=== PATIENT | female | born 1985 | race Caucasian/White ===

== ENCOUNTER 2019-09-19 09:27 | Outpatient (REF) | payer BC, SELFPAY ==
--- NOTE | 2019-09-19 08:45 | PAPFT_PTH ---
PATIENT: Franchesca Phelps LOC: [facility] U#:[id number] AGE/SX: 33/F ROOM: RE09/19/[address]: Gala Phillips NP : 1985 BED: DIS: 09/19/2019 SPEC #: [id number] RECD: 09/19/19 12:52 STATUS: PUMA REQ #: [id number] MIHAI: 09/19/19 08:[address]: Keily Aragon DEPT: [facility] Cytology RECD BY: Lien Chaidez ENTERED: 09/19/19 12:53 SP TYPE: PAPFT OTHR DR: Goldie Aden Tissues: 1 - CX/ENDOCX FOR PAP SMEARS Procedures: PAP THIN PREP/UVM Screening HPV DNA PROBE Comments: [id number]
== END 2019-09-19 09:47 ==
LOC: LBN 09:27
PROVIDERS: PCP Internal Medicine; Visit Provider Nurse Practitioner Women's Health
DX: Z12.4 Encounter for screening for malignant neoplasm of cervix (principal); Z11.51 Encounter for screening for human papillomavirus (HPV)
CPT/HCPCS: 88142; 87624

== ENCOUNTER 2020-10-31 11:38 | Outpatient (REF) | payer BC, SELFPAY ==
--- NOTE | 2020-10-31 11:00 | PAPFT_PTH ---
PATIENT: Franchesca Phelps LOC: [facility] U#:[id number] AGE/SX: 34/F ROOM: RE10/31/[address]: DANE Lopez : 1985 BED: DIS: 10/31/2020 SPEC #: [id number] RECD: 10/31/20 13:05 STATUS: PUMA REJackie #: [id number] MIHAI: 10/31/20 11:[address]: Goldie Gonzales DEPT: [facility] Cytology RECD BY: Lien Chaidez ENTERED: 10/31/20 13:06 SP TYPE: PAPFT OTHR DR: Goldie Aden Tissues: 1 - CX/ENDOCX FOR PAP SMEARS Procedures: PAP THIN PREP/UVM Screening HPV DNA PROBE Comments: [id number]
== END 2020-10-31 11:39 | disposition home or self-care (01) ==
LOC: LBN 11:38
PROVIDERS: PCP Internal Medicine; Visit Provider Nurse Practitioner Family
DX: Z12.4 Encounter for screening for malignant neoplasm of cervix (principal); Z87.410 Personal history of cervical dysplasia; Z11.51 Encounter for screening for human papillomavirus (HPV)
CPT/HCPCS: 88142; 87624

== ENCOUNTER 2021-08-12 14:14 | Outpatient (REF) | payer BC, SELFPAY ==
[2021-08-12 14:26] LABS: Source Nasal/Nares
[2021-08-12 22:40] LABS: COVID-19 PCR Negative (Negative)
== END 2021-08-12 14:15 | disposition home or self-care (01) ==
LOC: LBN 14:14
PROVIDERS: PCP Internal Medicine; Visit Provider Obstetrics & Gynecology Gynecology
DX: Z20.822 Contact with and (suspected) exposure to COVID-19 (principal); Z01.818 Encounter for other preprocedural examination
CPT/HCPCS: 87635

== ENCOUNTER 2021-08-12 14:49 | Outpatient (CLI) | payer BC, SELFPAY ==
[2021-08-12 14:43] LABS: Abs Immature Grans 0.03 10^3/uL (0.0-0.06); Absolute Basophil Count 0.02 10^3/uL (0.0-0.2); Absolute Eosinophil Count 0.05 10^3/uL (0.0-0.7); Absolute Lymphocyte Count 2.06 10^3/uL (1.2-3.4); Absolute Monocyte Count 0.42 10^3/uL (0.1-0.8); Absolute Neutrophil Count 4.76 10^3/uL (1.2-6.7); Basophils % 0.3; Eosinophils % 0.7; HCT 39.6 % (36.0-46.0); HGB 13.9 g/dL (11.2-15.7); Immature Grans % 0.4; Lymphocytes % 28.1; MCH 31.8 pg (27.0-33.0); MCHC 35.1 % (32.0-36.0); MCV 91 fL (80-95); Monocytes % 5.7; Neutrophils % 64.8; Platelet Count 199 10^3/uL (130-400); RBC 4.37 10^6/uL (3.93-5.22); RDW 12.4 % (11.7-14.6); RDW-SD 41.2 fL; WBC 7.34 10^3/uL (4.4-10.8)
== END 2021-08-12 14:50 | disposition home or self-care (01) ==
LOC: LBO 14:53
PROVIDERS: PCP Internal Medicine; Visit Provider Obstetrics & Gynecology Gynecology
DX: O03.4 Incomplete spontaneous abortion without complication (principal); Z01.818 Encounter for other preprocedural examination; Z01.812 Encounter for preprocedural laboratory examination
CPT/HCPCS: 36415; 86850; 86900; 86901; 85025

== ENCOUNTER 2021-08-13 09:58 | Day surgery (SDC) | payer BC, SELFPAY ==
[2021-08-13 10:10] VITALS: BP 134/74; PULSE 69; RESP 20; TEMP 36.5; O2SAT 100
[2021-08-13] MEDS: Lactated Ringers 1,000 ML 125 ML IV (10:33)
--- NOTE | 2021-08-13 11:04 | W.ANESPRE ---
General Info Date of Service Date Performed: 08/13/21 Height: 5 ft 4 in Weight: 77.9 kg Body Mass Index (BMI): 29.5 Surgical Procedure: Operation Date: 08/13/21 11:10 Proposed Procedure Side Surgeon p Suction Completion D&C Mary Mejia MD Meds Allergies and Home Medications Allergies Allergy/AdvReac Type Severity Reaction Status Date / Time cefaclor [From [facility]] Allergy Intermediate Hives Unverified 08/13/21 10:15 Home Medication Medication Instructions Recorded levonorgestrel-ethinyl estradiol 1 tab PO DAILY #84 tabs 07/30/21 0.1 mg-20 mcg tablet (Vienva) Current Visit Medications: Current Medications Generic Name Dose Route Start Last Admin Trade Name Freq PRN Reason Stop Dose Admin Ringer's Solution 1,000 mls @ 125 mls/hr 08/13/21 06:00 08/13/21 10:33 IV 09/11/21 23:59 125 mls/hr INFUSION JOSE Administration Doxycycline Hyclate 100 mg/ 100 mls @ 100 mls/hr 08/13/21 06:00 Sodium Chloride IVPB 08/13/21 16:00 PREOP JOSE IV Miscellaneous Supplies 1 each 08/13/21 06:00 Iv Access IV 09/11/21 23:59 DIRECTED JOSE Sodium Chloride 0 ml 08/13/21 06:00 Normal Saline Flush 10 Ml Syr IV 09/11/21 23:59 PRN PRN Sodium Chloride 0 ml 08/13/21 06:00 Normal Saline 10 Ml Vial IJ 09/11/21 23:59 DIRECTED PRN Sterile Water 0 ml 08/13/21 06:00 Water,Injection,Sterile 10 Ml Vial IJ 09/11/21 23:59 DIRECTED PRN PFSH Active Problems Active Problems: Problem Status Onset Code Preoperative exam for gynecologic surgery Z01.818 Incomplete O03.4 History of squamous cell carcinoma Z85.89 Fatigue R53.83 H/O cone biopsy of cervix Z98.890 ASCUS of cervix with negative high risk HPV R87.610 Pain related to vaginal delivery O75.89, R52 Dyspareunia BMI 30.0-30.9,adult Z68.30 Positive test Z32.01 Initiation of oral contraception Z30.011 Medical History Medical History Focal hyperhidrosis 2014 Gestational diabetes Patient had elevated 3-hour Glucola with . Diet controlled. Heart palpitations Per pt. states she has had these for years, has had negative EKG. Tobacco Smoking/Tobacco Use Status: Never Alcohol Alcohol Intake: current Alcohol intake frequency: holidays/special occasions only Substance Use Substance use: Never Substance use type: does not use Prental History History 1 Para Hx # Term Pregnancies 1 Multiple births Hx # Pregnancies Ectopic pregnancies AB induced Hx Number of Living Children AB spontaneous Vital Signs and Lab Results Vital Signs Most Recent Vital Signs in EMR: Most Recent Vital Signs Temp Pulse Resp BP Pulse Ox 36.5 C 69 20 134/74 100 08/13/21 10:10 08/13/21 10:10 08/13/21 10:10 08/13/21 10:10 08/13/21 10:10 Lab Results Blood Type / Crossmatch: Patient ABO/Rh O Positive 08/12/21 Antibody Screen NEGATIVE 08/12/21 Complete Blood Count: White Blood Count 7.34 10^3/uL (4.4-10.8) 08/12/21 14:25 Red Blood Count 4.37 10^6/uL (3.93-5.22) 08/12/21 14:25 Hemoglobin 13.9 g/dL (11.2-15.7) 08/12/21 14:25 Hematocrit 39.6 % (36.0-46.0) 08/12/21 14:25 Platelet Count 199 10^3/uL (130-400) 08/12/21 14:25 Complete Metabolic Panel: No Data to Display Liver Function Panel: No Data to Display Coagulation Panel: No Data to Display Cardiac Panel: No Data to Display Arterial Blood Gas: No Data to Display Venous Blood Gas: No Data to Display Pancreas Panel: No Data to Display Thyroid Panel: No Data to Display Infectious Disease: Coronavirus (COVID-19)(PCR) Negative (Negative) 08/12/21 14:00 Coronavirus 2019 Source Nasal/Nares 08/12/21 14:00 Blood Cultures: No Data to Display Toxicology Panel: No Data to Display Panel: No Data to Display Anesthesia Assessment and Plan Anesthesia History Personal History: No History of Anesthesia Complications Family History: No Family History of Anesthesia Complications Exercise Tolerance Exercise Tolerance: Metabolic Equivalents>4 Pertinent Negatives Pertinent Negatives: No Symptoms of GERD, No Major Cardiovascular Symptoms or Complaints, No Major Pulmonary Symptoms or Complaints and No History of CVA/TIA Cardiac & Pulmonary Exam Cardiac Exam: Normal S1/S2 Heart Sounds Pulmonary Exam: Clear Bilateral Breath Sounds Implantable Cardiac Device Does patient have a Pacemaker or an ICD?: No Airway Exam Known Difficult Airway: No Mallampati Class: 1 Mouth Opening: Normal (> 3cm) Thyromental Distance: Greater than 3 cm Neck Range of Motion: Full ROM Neck Circumference: Normal Teeth Condition: Normal Dentition ASA Classification ASA Score: ASA 2 Emergency Case?: No NPO Status NPO Status: NPO Clears >2 hours, Solids >8 hours Status Status: Other Anesthesia Plan Resuscitation Status: Full Code Anesthesia Technique: General Anesthesia Airway Planned: Natural Airway Monitors Used: Standard Monitors
[2021-08-13 11:05] VITALS: BMI 29.5
[2021-08-13] MEDS: DOXYCYCLINE 100 MG in Normal Saline 100 ML IVPB (11:16)
--- NOTE | 2021-08-13 11:40 | POCSPONT_PTH ---
PATIENT: Franchesca Phelps LOC: [facility] U#:[id number] AGE/SX: 35/F ROOM: RE08/13/[address]: Mary Mejia : 1985 BED: DIS: 08/13/2021 SPEC #: [id number] RECD: 08/13/21 13:02 STATUS: PUMA [facility] #: [id number] MIHAI: 08/13/21 11:[address]: Mary Mejia DEPT: Surgical Specimen RECD BY: Lien Chaidez ENTERED: 08/13/21 13:06 SP TYPE: POCSPONT OTHR DR: Goldie Aden Tissues: 1 - ,SPONTANEOUS Procedures: GROSS AND MICRO LEVEL 4 Comments: [id number]
[2021-08-13] MEDS: Silver Nitrate Stick 1 EACH (11:50)
[2021-08-13 11:58] VITALS: BP 104/84; PULSE 79; RESP 17; TEMP 36.3; O2SAT 98
--- NOTE | 2021-08-13 12:06 | W.ANESPOSTOP ---
Postoperative Evaluation Date, Time and Location Date Performed: 08/13/21 Time Performed: 12:06 Patient Location: Day Surgery Unit Vital Signs Most Recent Imported Vital Signs: Most Recent Vital Signs Temp Pulse Resp BP Pulse Ox 36.5 C 69 20 134/74 100 08/13/21 10:10 08/13/21 10:10 08/13/21 10:10 08/13/21 10:10 08/13/21 10:10 Assessment Mental Status: Awake (Alert & Oriented to Patient Baseline) Airway and Respiratory Function: Patent airway with normal (patient baseline) respiratory exam Cardiovascular Function: Hemodynamically Stable Hydration Status: Adequately Hydrated Nausea & Vomiting: No Nausea or Vomiting Pain: Pt. Denies Any Pain Peripheral Nerve Block: Patient did not receive a nerve block
--- NOTE | 2021-08-13 12:20 | W.PM.DSUDISC ---
Discharge Plan Disposition Patient Disposition: HOME Condition: Good Discharge Details Reason For Visit: D & C Attending Provider: Mary Mejia Primary Care Provider: Goldie Aden Home Meds and New Rx's Prescriptions: No Action levonorgestrel-ethinyl estrad [Vienva] 0.1-20 mg-mcg tablet 1 tab PO DAILY Qty: 84 5RF Discharge Instructions Additional Instructions: You will have bleeding like a light period for the next week. Your uterus will also cramp for the next week. Take Ibuprofen 600mg every 6 hours as needed for pain. OK to take Tylenol 600mg every six hours for pain. You can take them together. You have a lab requisition for a blood test that you can have performed at [facility] next Tuesday. They will fax me the results and we discuss them on the phone. Nothing in the vagina, no tampons or intercourse until the bleeding stops. Stand Alone Forms: DSU Post Suction D+C Activity:: Activity as Tolerated Diet:: As Tolerated Discharge Orders Discharge Orders: Discharge Order (Routine); Ordered 08/13/21 Ordered By: Mary Mejia
[2021-08-13 12:30] VITALS: BP 123/65; PULSE 71; RESP 18; TEMP 36.4; O2SAT 100
[2021-08-13] MEDS: oxyCODONE 5 mg/Acetaminophen 325 mg TAB PO (12:34)
--- NOTE | 2021-08-13 12:36 | W.PM.OP ---
Date of service: 08/13/21 Time of Service: 11:37 Operative Note Operative Note DATE OF PROCEDURE: 08/13/21 PRE-OP DIAGNOSIS: retained products of conception POST-OP DIAGNOSIS: same PROCEDURE: cervical dilation and suction evacuation of uterine cavity SURGEON: Mary Mejia Refer to Anesthesia Record ESTIMATED BLOOD LOSS: 5 PATHOLOGY: other (products of conception to pathology) COMPLICATIONS: None Patient was transported to: same day Patient's condition: stable Implants: none Indications: Patient is a 35-year-old female with retained products of conception after an elective termination of on 07/23/2021 at the [facility].? Patient called the office earlier this week to report breast tenderness and uterine cramping that was concerning for continued .? A quantitative hCG was performed on 08/11/2021 and returned as 16,967 mIU/ml.? Pelvic ultrasound performed in [facility] showed no evidence of a viable IUP. The endometrial stripe is thickened approximately 0.87 cm with echogenic material suggesting retained products of conception.? There is no evidence of adnexal masses or pelvic free fluid.? After counseling the patient regarding her options for evacuation and proximal of conception decision was made to proceed with a cervical dilation and uterine curettage with monitored anesthesia care. Findings: Small amount of retained products of conception. Uterine cavity sounded to 9 cm Procedure Description: Patient was taken to the operating room where she was placed in the dorsal supine position and monitored anesthesia was administered without difficulty. IV Doxycycline was administered upon arrival in the OR. She was then placed in the dorsal lithotomy position in [facility] stirrups in a neurologically neutral position. She was then prepped, and draped in the usual sterile fashion. Surgical timeout was performed. Pocola speculum was placed into the vagina and the anterior lip of the cervix was infiltrated with 2 cc of 0.25% Marcaine without epinephrine. A single-tooth tenaculum was then used to grasp and hold the anterior lip of the cervix. A paracervical block was performed with 4 cc of quarter percent Marcaine injected into the 4 and 8:00 paracervical spaces respectively. The uterus was sounded to 9 cm. The cervix was then sequentially dilated to a maximum of 8 Parks and a 7 mm curved suction cannula was attached to suction and the level of suction tested. The cannula was inserted into the uterine cavity attached to suction and sequentially all 4 quadrants of the uterine cavity were suction curetted until minimal tissue returned. The suction cannula was then removed a banjo curette was used to perform a gentle curetting of all 4 quadrants of the uterine cavity. Minimal tissue was returned. A final insertion of the suction cannula and suction curetting of all 4 quadrants was performed with minimal tissue returned. All instruments were removed from the vagina tenaculum site was noted to be bleeding. The bleeding did not respond to application with Silver Nitrate. A interupted suture of 2-0 Vicryl was used to achieve hemostatisis. Patient was awakened and transported to recovery area in stable condition. All sponge lap needle counts correct x2
== END 2021-08-13 13:19 | disposition home or self-care (01) ==
PROVIDERS: PCP Internal Medicine; Visit Provider Obstetrics & Gynecology Gynecology
PROC: (CPT 59841; principal; 2021-08-13 11:00)
DX: O02.1 Missed abortion
CPT/HCPCS: 59812; 88305; J1100; J1885; J2250; J2405